=== PATIENT | male | born 1990 | race Caucasian/White ===

== ENCOUNTER 2017-03-24 21:12 | Emergency (ER) | payer OTHER ==
[~2017-03-24] VITALS: Ht 177.8 cm; Wt 74.2 kg
[2017-03-24 21:14] VITALS: BP 119/80
[2017-03-24] MEDS ORDERED: LIDOCAINE 1%, 20ML ONE (21:29)
[2017-03-24] MEDS ORDERED: DIPH,PERTUSS(ACELL),TET VAC/PF 0.5 ML IM-VACC ONE ×2 (21:44→22:00)
[2017-03-24] MEDS ORDERED: LIDOCAINE 1%, 20ML SQ ONE (22:00)
[2017-03-24] MEDS ORDERED: BACITRACIN ZINC OINT 500U/GM, 0.9 GM ONE (22:43)
== END 2017-03-24 23:17 | disposition home or self-care (01) ==
LOC: ED 23:01
DX: S01.21XA Laceration without foreign body of nose, initial encounter (principal); S01.81XA Laceration without foreign body of other part of head, initial encounter; G89.11 Acute pain due to trauma; W18.30XA Fall on same level, unspecified, initial encounter; Y93.89 Activity, other specified; Y92.410 Unspecified street and highway as the place of occurrence of the external cause; Y99.8 Other external cause status
CPT/HCPCS: 12011; 13151; 90471; 90715

== ENCOUNTER 2017-04-01 19:36 | Emergency (ER) | payer OTHER ==
[~2017-04-01] VITALS: Ht 177.8 cm; Wt 74.8 kg
[2017-04-01 19:37] VITALS: BP 131/79
== END 2017-04-01 21:07 | disposition home or self-care (01) ==
LOC: ED 21:01
DX: S02.5XXD Fracture of tooth (traumatic), subsequent encounter for fracture with routine healing (principal); S01.21XD Laceration without foreign body of nose, subsequent encounter; S01.511D Laceration without foreign body of lip, subsequent encounter; X58.XXXD Exposure to other specified factors, subsequent encounter
CPT/HCPCS: 99282